=== PATIENT | female | born 1985 | race Caucasian/White ===

== ENCOUNTER 2019-11-10 14:32 | Emergency (ER) | payer BC ==
--- NOTE | 2019-11-10 15:37 | EDM.PDOC ---
ED HPI GENERAL MEDICAL PROBLEM - General Chief Complaint: Skin Complaint Stated Complaint: LEFT FOOT INFECTED Time Seen by Provider: 11/10/19 15:20 Source of Information: Reports: Patient, Family, RN Notes Reviewed - History of Present Illness INITIAL COMMENTS - FREE TEXT/NARRATIVE: Diandra presents today for complaints of wound to with redness and pain to left foot for two days. She states her friends thought there was a hair or something in the wound. They did try to get it out but did not find anything. She has tried foot soaks without much relief. She denies fever, chills, nausea, vomiting, change in bowel/bladder or other concerns. She denies any insect bites, injury or trauma to the foot. - Related Data Allergies Allergy/AdvReac Type Severity Reaction Status Date / Time erythromycin base Allergy Hives Verified 11/10/19 14:55 Home Meds: Home Meds Citalopram [Citalopram HBr] 40 mg PO DAILY 11/10/19 [History] DULoxetine HCl [Cymbalta] 1 tab PO BEDTIME 11/10/19 [History] Fexofenadine [Sally] 1 tab PO DAILY 11/10/19 [History] Gabapentin [Neurontin] 1,200 mg PO BID 11/10/19 [History] diphenhydrAMINE HCL [Diphenhydramine HCl] 1 tab PO BEDTIME 11/10/19 [History] oxyCODONE HCl/Acetaminophen [Oxycodone-Acetaminophen 5-325] 1 tab PO BEDTIME 11/10/19 [History] Past Medical History Cardiovascular History: Reports: Heart Murmur Other Cardiovascular History: MICRO VALVE ATROFY Gastrointestinal History: Reports: Irritable Bowel Syndrome Musculoskeletal History: Reports: Fracture Neurological History: Reports: Other (See Below) Other Neuro History: COMPLEX REGIONAL PAIN SYNDROME Psychiatric History: Reports: Anxiety, Depression, PTSD - Infectious Disease History Infectious Disease History: Reports: Chicken Pox - Past Surgical History GI Surgical History: Reports: Colonoscopy, EGD Social & Family History - Tobacco Use Smoking Status *Q: Current Every Day Smoker Years of Tobacco use: 16 Packs/Tins Daily: 0.5 Used Tobacco, but Quit: No - Caffeine Use Caffeine Use: Reports: Energy Drinks - Recreational Drug Use Recreational Drug Use: No ED ROS GENERAL - Review of Systems Review Of Systems: See Below Constitutional: Reports: No Symptoms HEENT: Reports: No Symptoms Respiratory: Reports: No Symptoms Cardiovascular: Reports: No Symptoms Skin: Reports: Rash, Erythema (left foot at web of 5th/4th toes) Neurological: Reports: No Symptoms Psychiatric: Reports: No Symptoms Hematologic/Lymphatic: Reports: No Symptoms Immunologic: Reports: No Symptoms ED EXAM, SKIN/RASH Exam: See Below Exam Limited By: No Limitations General Appearance: Alert, WD/WN, No Apparent Distress Head: Atraumatic, Normocephalic Respiratory/Chest: No Respiratory Distress, Lungs Clear, Normal Breath Sounds, No Accessory Muscle Use, Chest Non-Tender. No: Crackles, Rales, Rhonchi, Wheezing Cardiovascular: Normal Peripheral Pulses, Regular Rate, Rhythm, No Edema, No Gallop, No Murmur, No Rub Peripheral Pulses: 2+: Dorsalis Pedis (L), Dorsalis Pedis (R) Extremities: Normal Range of Motion, No Pedal Edema, Normal Capillary Refill, Other (tender to area of redness 1cm, circular with central scabbing. No drainage noted. No fluctuance. ) Neurological: Alert, Oriented, Normal Cognition, Normal Gait, Normal Reflexes, No Motor/Sensory Deficits Psychiatric: Normal Affect, Normal Mood Skin: Warm, Dry, Erythema (described as above) Location, Skin: Other (left foot 4th/5th web. Use of magnifier viewer to examine wound, no foreign body identified.) Associated features: Warmth, Tenderness, Crusting. No: Weeping Lymphatic: No Adenopathy Course - Vital Signs Last Recorded V/S: Last Vital Signs Temp 36.9 C 11/10/19 15:14 Pulse 101 H 11/10/19 15:14 Resp 16 11/10/19 15:14 BP 96/51 L 11/10/19 15:14 Pulse Ox 99 11/10/19 15:14 Departure - Departure Time of Disposition: 15:35 Disposition: Home, Self-Care 01 Condition: Good Clinical Impression: Cellulitis and abscess of foot - Discharge Information *PRESCRIPTION DRUG MONITORING PROGRAM REVIEWED*: Not Applicable *COPY OF PRESCRIPTION DRUG MONITORING REPORT IN PATIENT ABBI: Not Applicable Instructions: Cellulitis, Adult, [id number] Referrals: Shakira Murillo CNM [Primary Care Provider] - Forms: ED Department Discharge Additional Instructions: Keep area clean and dry Do epsom salt soaks twice a day for three days. Cephalexin 1000mg by mouth twice a day for 10 days. Mupirocin topical to area twice a day for 7 days. Return for worsening, issues or concerns. Sepsis Event Note (ED) - Evaluation Sepsis Screening Result: No Definite Risk - Focused Exam Vital Signs: Vital Signs Temp Pulse Resp BP Pulse Ox 11/10/19 15:14 36.9 C 101 H 16 96/51 L 99 11/10/19 14:52 36.9 C 101 H 16 96/51 L 99 - Assessment/Plan Assessment:: Cellulitis and abscess of foot Plan: Keep area clean and dry Do epsom salt soaks twice a day for three days. Cephalexin 1000mg by mouth twice a day for 10 days. Mupirocin topical to area twice a day for 7 days. Return for worsening, issues or concerns.
== END 2019-11-10 15:57 | disposition home or self-care (01) ==
LOC: JP.ED 14:32
DX: L03.116 Cellulitis of left lower limb (principal); L02.612 Cutaneous abscess of left foot; F41.9 Anxiety disorder, unspecified; F32.9 Major depressive disorder, single episode, unspecified; F17.210 Nicotine dependence, cigarettes, uncomplicated; Z88.1 Allergy status to other antibiotic agents; Z79.899 Other long term (current) drug therapy
CPT/HCPCS: 99283

== ENCOUNTER 2022-04-20 15:12 | Emergency (ER) | payer OTHER ==
[2022-04-20] MEDS ORDERED: HYDROmorphone 0.5 MG/0.5 ML Syringe IVPUSH ONE ×2 (15:59→17:43)
[2022-04-20 16:33] LABS: ESTIMATED GFR 118 mL/min (>60)
[2022-04-20] MEDS ORDERED: Iopamidol 612 MG/ML 100 ML Bottle IV SCH (17:00)
[2022-04-20] MEDS ORDERED: Sodium Chloride 0.9% 75 ML IV SCH (17:00)
[2022-04-20] MEDS ORDERED: Sodium Chloride 0.9% 1,000 ML IV SCH (17:45)
== END 2022-04-20 19:39 | disposition home or self-care (01) ==
LOC: JP.ED 15:12
DX: E86.0 Dehydration (principal); Z72.0 Tobacco use; Z88.1 Allergy status to other antibiotic agents; Z98.890 Other specified postprocedural states
CPT/HCPCS: 36415; 74177; 80053; 81001; 85025; 86140; 87086; 96361; 96374; 96376; 99284; J1170; J3490; J7030; Q9967